=== PATIENT | female | born 1995 | race Caucasian/White ===

== ENCOUNTER 2025-03-24 18:50 | Emergency (ER) | payer OTHER ==
[2025-03-24 20:01] LABS: Specific Gravity < 1.005 (1.005-1.030)
[2025-03-24 20:32] LABS: Barbiturates NEGATIVE (NEGATIVE); Benzodiazepines NEGATIVE (NEGATIVE); Cocaine NEGATIVE (NEGATIVE); METHAMPHETAM NEGATIVE (NEGATIVE); Methadone NEGATIVE (NEGATIVE); Opiates NEGATIVE (NEGATIVE); Phencyclidine NEGATIVE (NEGATIVE); THC Cannibis NEGATIVE (NEGATIVE)
[2025-03-24] MEDS ORDERED: NA CHLORIDE 0.9% 1,000 ML ONE (21:25)
[2025-03-24 21:26] LABS: Absolute Eosinophils 0.1 K/uL (0-0.5); Absolute Lymphocytes (CBC) 2.2 K/uL (0.7-4.9); Absolute Monocytes 0.4 K/uL (0.1-1.3); Absolute Neutrophil 3.7 K/uL (1.8-8.0); Basophils % 0.5 % (0-1.3); Eosinophils % 0.9 % (0-4.4); Hematocrit 32.8 % (36.0-45.0); Hemoglobin 10.9 g/dL (12.0-15.0); Lymphocytes % 33.9 % (15.3-44.8); MCH 25.4 pg (27.0-35.0); MCHC 33.4 g/dL (32.0-36.0); MPV 8.5 fL (7.6-11.3); Neutrophils % 57.7 % (41.7-73.7); Platelets 275 thou/uL (152-406); RBC Red Blood Cell Count 4.31 M/uL (3.86-4.86)
[2025-03-24 21:35] LABS: PT Prothrombin Time 10.9 SECONDS (10-13.0); PTT, Activated Partial Thromb 34.4 SECONDS (27.2-37.4); Protime INR 0.95
[2025-03-24 22:13] LABS: ALT/SGPT 117 U/L (13-56); AST/SGOT 63 U/L (15-37); Albumin 3.6 g/dL (3.4-5.0); Albumin/Globulin Ratio 0.8 (1.1-1.8); Alkaline Phosphatase 78 U/L (45-117); Anion Gap 9.9 mEq/L (5.0-15.0); BUN Blood Urea Nitrogen 10 mg/dL (7-18); Bicarbonate 25 mEq/L (21-32); Bilirubin Total 0.2 mg/dL (0.2-1.0); Globulin 4.4 g/dL (2.3-3.5); Glomerular Filtration Rate 125 ml/min (=/>90); Glucose Level 91 mg/dL (74-106); Potassium 3.9 mEq/L (3.5-5.1); Sodium Level 140 mEq/L (136-145)
[2025-03-24 22:20] LABS: Bilirubin Direct < 0.2 mg/dL (0-0.2)
--- NOTE | 2025-03-24 22:36 | ER ---
Nurse's Notes [facility] Name: Dio Abebe Age: 30 yrs Sex: Female : 1995 Arrival Date: 03/24/2025 Time: 18:50 Bed 22 Private MD: Diagnosis: Suicidal ideations Presentation: 03/24 18:58 Chief complaint: Patient states: she took 15 Seroquel 50 mg tabs and approx 23 iw hydroxyzine 50 mg tabs , took then at 1800 today. She states she wanted to go to sleep and she was pretty upset. Coronavirus screen: At this time, the client does not indicate any symptoms associated with coronavirus-19. Ebola Screen: No symptoms or risks identified at this time. Initial Sepsis Screen: Does the patient meet any 2 criteria? HR > 90 bpm. Does the patient have a suspected source of infection? No. Patient's initial sepsis screen is negative. Risk Assessment: Do you want to hurt yourself or someone else? Patient reports desire/thoughts of hurting themselves or someone else. Provider notified. Onset of symptoms was March 24, 2025. 18:58 Acuity: SAMANTHA 2 iw 18:58 Method Of Arrival: Ambulatory iw Historical: - Allergies: 20:18 No Known Allergies; jj7 - PMHx: 03/25 13:27 Anxiety; Depressive disorder; Bipolar disorder; jl7 - PSHx: 13:27 None; jl7 - Immunization history:: Adult Immunizations unknown. - Infectious Disease History:: Denies. - Social history:: Smoking status: Reported history of juuling and/or vaping. Patient uses street drugs, heroin, IV drugs, heroin, Patient/guardian denies using alcohol. Screenin/08 19:35 [facility] ED Fall Risk Assessment (Adult) History of falling in the last 3 months, jj7 including since admission No falls in past 3 months (0 pts) Confusion or Disorientation No (0 pts) Intoxicated or Sedated No (0 pts) Impaired Gait No (0 pts) Mobility Assist Device Used No (0 pt) Altered Elimination No (0 pt) Score/Fall Risk Level 0 - 2 = Low Risk Oriented to surroundings, Maintained a safe environment, Educated pt \\T\\ family on fall prevention, incl call for assistance when getting out of bed, Assessed \\T\\ reinforced patient's understanding of fall precautions, Hourly rounding (assess needs \\T\\ fall precautionary measures) done. Abuse screen: Denies threats or abuse. Nutritional screening: No deficits noted. Tuberculosis screening: No symptoms or risk factors identified. Assessment: 19:30 Reassessment: ASUMMED CARE OF PT. Patient denies pain at this time. General: [facility] in [facility] no apparent distress. comfortable, Behavior is calm, cooperative, appropriate for age, drowsy. Pain: Denies pain. Neuro: Level of Consciousness is alert, obeys commands, lethargic, Oriented to person, place, time, situation, Appropriate for age Moves all extremities. Full function Gait is steady, Speech is normal. Cardiovascular: No deficits noted. Respiratory: No deficits noted. GI: No deficits noted. : No deficits noted. EENT: No deficits noted. Derm: No deficits noted. Musculoskeletal: No deficits noted. 19:50 Reassessment: POISON CONTROL CALLED. STATES SUPPORTIVE AND SYMPTOMATIC CARE. 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 CAN CAUSE SZ. HAS ANTICHOLINERGIC SYMPTOMS LIKE DRY MOUTH. GET EKG NOW. IF PROLONGED ST GREATER THAN 120MM GIVE BICARD AND DO ANOTHER EKG. QTC GREATER THAN 500MM WATCH ELECTROLYTES. K+ 4-4.5. MAG GREATER THAN 2 AND CALCIUM GREATER THAN 9. 21:51 Reassessment: PT RESTING COMFORTABLY IN BED. NO DISTRESS NOTED. VS STABLE. [facility] AT [facility]. 23:41 Reassessment: No changes from previously documented assessment. [facility] 03/25 01:00 Reassessment: SHALES WITH [facility] AT BEDSIDE. [facility] 02:00 Reassessment: PT SLEEPING NO DISTRESS NOTED. j 03:00 Reassessment: No changes from previously documented assessment. j7 04:00 Reassessment: No changes from previously documented assessment. j7 05:00 Reassessment: No changes from previously documented assessment. j 07:00 General: Appears in no apparent distress. comfortable, well groomed, well developed, kc6 Behavior is calm, cooperative, appropriate for age. Pain: Denies pain. Neuro: Level of Consciousness is awake, alert, obeys commands, Oriented to person, place, time, situation, Appropriate for age. Cardiovascular: Capillary refill < 3 seconds. Respiratory: Airway is patent Trachea midline Respiratory effort is even, unlabored, Respiratory pattern is regular, symmetrical. GI: No signs and/or symptoms were reported involving the gastrointestinal system. : No signs and/or symptoms were reported regarding the genitourinary system. EENT: No signs and/or symptoms were reported regarding the EENT system. Derm: No signs and/or symptoms reported regarding the dermatologic system. Skin is intact, is healthy with good turgor, Skin is pink, warm \\T\\ dry. Musculoskeletal: No signs and/or symptoms reported regarding the musculoskeletal system. Circulation, motion, and sensation intact. Range of motion: intact in all extremities. 07:04 Reassessment: PT STATES SHE TOOK THE MEDS BECAUSE SHE DIDN'T LIKE HOW SHE WAS FEELING. dottie JUST GOT OUT OF REHAB March AND RELAPSED AND WAS UPSET ABOUT RELAPSING. THAT'S WHY SHE TOOK THE MEDS. 07:13 Reassessment: at bedside visiting with patient, security called to obtain kc6 patient belongings. 08:41 Reassessment: Patient appears in no apparent distress at this time. No changes from kc6 previously documented assessment. Patient and/or family updated on plan of care and expected duration. Pain level reassessed. Patient is alert, oriented x 3, equal unlabored respirations, skin warm/dry/pink. 09:42 Reassessment: Patient appears in no apparent distress at this time. No changes from kc6 previously documented assessment. Patient and/or family updated on plan of care and expected duration. Pain level reassessed. Patient is alert, oriented x 3, equal unlabored respirations, skin warm/dry/pink. 10:49 Reassessment: Patient appears in no apparent distress at this time. No changes from kc6 previously documented assessment. Patient and/or family updated on plan of care and expected duration. Pain level reassessed. Patient is alert, oriented x 3, equal unlabored respirations, skin warm/dry/pink. Patient denies pain at this time. 11:49 Reassessment: Patient appears in no apparent distress at this time. No changes from kc6 previously documented assessment. Patient and/or family updated on plan of care and expected duration. Pain level reassessed. Patient is alert, oriented x 3, equal unlabored respirations, skin warm/dry/pink. 12:49 Reassessment: Patient appears in no apparent distress at this time. No changes from kc6 previously documented assessment. Patient and/or family updated on plan of care and expected duration. Pain level reassessed. Patient is alert, oriented x 3, equal unlabored respirations, skin warm/dry/pink. 13:31 Reassessment: Nurse to nurse with [facility]. 7 13:49 Reassessment: Patient appears in no apparent distress at this time. No changes from kc6 previously documented assessment. Patient and/or family updated on plan of care and expected duration. Pain level reassessed. Patient is alert, oriented x 3, equal unlabored respirations, skin warm/dry/pink. Overdose: 03/24 19:30 [place] Suicide Severity Screening: "In the past month, have you wished you were jj7 or wished you could go to sleep and not wake up?" Patient responds "no." "In the past month, have you actually had any thoughts of killing yourself?" Patient responds "no." "In your lifetime, have you ever done anything, started to do anything, or prepared to do anything to end your life?" Patient responds "no.". Patient took SEROQUEL 50MG-TOOK 15 TABLETS. HYDROXYZINE 50MG- TOOK 23 TABLETS. 19:30 [place] Suicide Severity Screening: "In the past month, have you wished you were jj7 or wished you could go to sleep and not wake up?" Patient responds "no." "In the past month, have you actually had any thoughts of killing yourself?" Patient responds "no." "In your lifetime, have you ever done anything, started to do anything, or prepared to do anything to end your life?" Patient responds "no.". Overdose occurred 1-2 hours ago. Vital Signs: 18:58 BP 128 / 89; Pulse 105; Resp 16; Temp 98.9; Pulse Ox 100% on R/A; iw 21:48 BP 115 / 66; Pulse 97; Resp 15; Pulse Ox 99% ; Pain 0/10; jj7 23:48 BP 110 / 68; Pulse 87; Resp 16; Pulse Ox 100% ; jj7 03/25 03:00 BP 116 / 61; Pulse 82; Resp 16; Pulse Ox 99% ; jj7 21:48 Pain Scale: Adult jj7 Leti Coma Score: 03/24 19:35 Eye Response: spontaneous(4). Motor Response: obeys commands(6). Verbal Response: jj7 oriented(5). Total: 15. ED Course: 18:53 Patient arrived in ED. al6 18:56 Gricel Wooten [facility]-C [facility]. sb4 18:56 Yesenia Adair MD is Attending Physician. sb4 19:00 Triage completed. iw 19:15 Reinier Dunn, RN is Primary Nurse. jj7 19:35 Missed attempt(s): 20 gauge in right upper arm. PT IS AN IV HEROINE USER VERY HARD jj7 STICK. CHARGE NURSE INFORMED. PT WILL NEED US GUIDED IV. Bleeding controlled, band aid applied, catheter tip intact. 19:35 Patient has correct armband on for positive identification. Bed in low position. Side j7 rails up X 1. Adult w/ patient. Provided Education on: MENTAL HEALTH PROTOCOL. Client placed on continuous cardiac and pulse oximetry monitoring. NIBP monitoring applied. lunchroom monitor on. Warm blanket given. 20:02 Urine Drug Screen Sent. j7 21:20 Inserted saline lock: 22 gauge in left forearm, using aseptic technique. ,using aseptic bm8 technique. ultrasound guided Blood collected. Flushed with 10 mL NS. 21:51 Lights dimmed. jj7 22:46 Called [facility]\\ [id number]. 03/25 02:22 Vik Wood MD is Attending Physician. cp 07:00 Patient maintains SpO2 saturation greater than 95% on room air. [facility] 07:00 Patient has correct armband on for positive identification. Bed in low position. Side [facility] rails up X2. Adult w/ patient. Valuables inventory done. Locked in safe. See valuables checklist. Sitter at bedside. Door closed. Noise minimized. Visitors limited. Lights dimmed. Moved to private room. Warm blanket given. Pillow given. Diet tray ordered. Verbal reassurance given. Patient is placed in psych hold. 07:00 Arm band placed on. 6 07:00 Report received from NORBERT CERRATO. kc6 07:13 Report given to THEO TOUSSAINT. jj7 13:30 administrative approval given by Anitra Gandhi / patient has been accepted to [facility]/ Dr. Rios has accepted the patient in transfer. 13:31 connected Corina Rn from [facility] with the Rn taking care of the patient for eb nurse to nurse. 13:32 Primary Nurse role handed off by Reinier Dunn, RN jl7 Administered Medications: 03/24 21:45 Drug: NS 0.9% IV 1000 ml IV at 1 bolus Per protocol; to be given as a bolus over 60 jj7 minutes Route: IV; Rate: 1 bolus; Site: left forearm; 22:50 Follow up: IV Status: Completed infusion jj7 Medication: 19:35 VIS not applicable for this client. jj7 Outcome: 22:36 ER care complete, transfer ordered by MD. major 03/25 16:20 Patient left the ED. eb Signatures: So Boyd, RN Vik Virk PA PA cp Leal, Jahala RN RN jl7 Sravani Gloria Kaitlyn RN RN kc6 Reinier Dunn, RN RN jjGricel Hernandez, PA-C PA-Steven [email or web address] Brady Butt RN RN bm8 Moni Camacho Alissa al6 Corrections: (The following items were deleted from the chart) 03/24 23:41 19:35 Reassessment: ASUMMED CARE OF PT. Patient denies pain at this time. j7 jj7 23:41 19:35 General: Appears in no apparent distress. comfortable, Behavior is calm, jj7 cooperative, appropriate for age, drowsy, jj7 : 19:35 Pain: Denies pain. jj7 jj7 :41 19:35 Neuro: Level of Consciousness is alert, obeys commands, lethargic, Oriented to jj7 person, place, time, situation, Appropriate for age Moves all extremities. Full function Gait is steady, Speech is normal, jj7 23:41 19:35 Cardiovascular: No deficits noted. jj7 jj7 : 19:35 Respiratory: No deficits noted. jj7 jj7 :41 19:35 GI: No deficits noted. jj7 jj7 :41 19:35 : No deficits noted. jj7 jj7 :41 19:35 EENT: No deficits noted. jj7 jj7 23:41 19:35 Derm: No deficits noted. jj7 jj7 23:41 19:35 Musculoskeletal: No deficits noted. jj7 jj7 03/25 07:07 03/24 19:30 Musculoskeletal: No deficits noted. jj7 jj7
--- NOTE | 2025-03-24 22:36 | EDPHYS ---
Physician Documentation [facility] Name: Dio Abebe Age: 30 yrs Sex: Female : 1995 Arrival Date: 03/24/2025 Time: 18:50 Bed 22 Private MD: ED Physician Vik Wood HPI: 03/24 19:40 This 30 yrs old Female presents to ER via Ambulatory with complaints of Overdose. sb4 19:40 The patient presents to the emergency department after a known overdose, that was sb4 intentional. Context: Method: the patient has a confirmed or suspected ingestion, quetiapine and hydroxyzine , Time: at 18:00, Extent: the OD/poisoning occurred at at home. 19:41 Patient states that she took a copious amount of her hydroxyzine and quetiapine because sb4 she did not like the way she felt. States that she just recently got out of rehab for heroin abuse. States that she is no longer suicidal. Historical: - Allergies: 20:18 No Known Allergies; jj7 - PMHx: 03/25 13:27 Anxiety; Depressive disorder; Bipolar disorder; jl7 - PSHx: 13:27 None; jl7 - Immunization history:: Adult Immunizations unknown. - Infectious Disease History:: Denies. - Social history:: Smoking status: Reported history of juuling and/or vaping. Patient uses street drugs, heroin, IV drugs, heroin, Patient/guardian denies using alcohol. ROS: 03/24 19:41 Constitutional: Negative for fever, chills, and weight loss, sb4 Exam: 03/25 01:02 Constitutional: This is a well developed, well nourished patient who is awake, alert, sb4 and in no acute distress. Head/Face: Normocephalic, atraumatic. Eyes: Extra-ocular motions intact. Periorbital areas with no swelling, redness, or edema. ENT: Mucous membranes moist. Cardiovascular: Regular rate and rhythm with a normal S1 and S2. Respiratory: No increased work of breathing, no retractions or nasal flaring. Abdomen/GI: Soft, non-tender, no distension. Skin: Warm, dry with normal turgor. Normal color with no rashes, no lesions, and no evidence of cellulitis. Vital Signs: 03/24 18:58 BP 128 / 89; Pulse 105; Resp 16; Temp 98.9; Pulse Ox 100% on R/A; iw 21:48 BP 115 / 66; Pulse 97; Resp 15; Pulse Ox 99% ; Pain 0/10; jj7 23:48 BP 110 / 68; Pulse 87; Resp 16; Pulse Ox 100% ; jj7 03/25 03:00 BP 116 / 61; Pulse 82; Resp 16; Pulse Ox 99% ; jj7 21:48 Pain Scale: Adult jj7 Hawkins Coma Score: 03/24 19:35 Eye Response: spontaneous(4). Motor Response: obeys commands(6). Verbal Response: jj7 oriented(5). Total: 15. MDM: 18:56 Medical Screening Exam initiated sb4 03/25 01:02 Data reviewed: vital signs, nurses notes, lab test result(s), EKG, radiologic studies. sb4 01:30 Differential diagnosis: Ingestion/exposure to hydroxyzine/seroquel over medication, sb4 suicidal ideation. Management of patient was discussed with the following: Behavioral Health Provider: recommends inpatient therapy. Counseling: I had a detailed discussion with the patient and/or guardian regarding the historical points, exam findings, and any diagnostic results supporting the discharge/admit diagnosis, lab results, radiology results, the need to transfer to another facility, [facility] does not immediately have the required specialist. 03/24 18:57 Order name: Acetaminophen; Complete Time: 22:25 4 03/24 18:57 Order name: Basic Metabolic Panel; Complete Time: 22:25 [facility] 03/24 18:57 Order name: CBC with Diff; Complete Time: 21:29 4 03/24 18:57 Order name: ETOH Level; Complete Time: 22:04 4 03/24 18:57 Order name: Hepatic Function; Complete Time: 22:25 4 03/24 18:57 Order name: PT-INR; Complete Time: 21:41 4 03/24 18:57 Order name: Test, Urine; Complete Time: 20:01 4 03/24 18:57 Order name: Ptt, Activated; Complete Time: 21:41 [facility] 03/24 18:57 Order name: Salicylate; Complete Time: 22:15 4 03/24 18:57 Order name: Urine Drug Screen; Complete Time: 20:44 sb4 03/24 18:57 Order name: EKG - Nurse/Tech; Complete Time: 20:02 sb4 03/24 18:57 Order name: IV Saline Lock; Complete Time: 21:21 sb4 03/24 18:57 Order name: Labs collected and sent; Complete Time: 21:21 sb4 03/24 18:57 Order name: Suicide Precautions; Complete Time: 20:02 sb4 03/24 18:57 Order name: Suicide Screening ([place]); Complete Time: 19:37 sb4 03/24 18:57 Order name: Misc. Order: call poison control; Complete Time: 20:07 sb4 EC/08 20:01 Rate is 95 beats/min. Rhythm is regular, Normal Sinus Rhythm. ID interval is normal at sb4 132 msec. QRS interval is normal at 88 msec. QT interval is normal at 360 msec. No Q waves. T waves are Normal. No ST changes noted. Clinical impression: Normal ECG. Interpreted by me. Reviewed by me. Administered Medications: 21:45 Drug: NS 0.9% IV 1000 ml IV at 1 bolus Per protocol; to be given as a bolus over 60 jj7 minutes Route: IV; Rate: 1 bolus; Site: left forearm; 22:50 Follow up: IV Status: Completed infusion jj7 Disposition Summary: 03/24/25 22:36 Transfer Ordered Notes: Transfer Location: Psych Facility sb4 Reason: Higher level of care sb4 Condition: Fair sb4 Problem: new sb4 Symptoms: are unchanged sb4 Accepting Physician: psych(03/25/25 16:20) eb Diagnosis - Suicidal ideations sb4 Forms: - Medication Reconciliation Form sb4 - SBAR form sb4 Signatures: Dispatcher [employer] EDMS Patricio Arevalo RN RN jl7 Sravani Gloria Kaitlyn RN RN kc6 Reinier Dunn RN RN jj7 Gricel Wooten PA-C PA-C sb4 Corrections: (The following items were deleted from the chart) 18:58 18:58 ACETAMINOPHEN+C.LAB.BRZ ordered. EDMS EDMS 18:58 18:58 BASIC METABOLIC PANEL+C.LAB.BRZ ordered. EDMS EDMS 18:58 18:58 CBC+H.LAB.BRZ ordered. EDMS EDMS 18:58 18:58 ETHANOL+C.LAB.BRZ ordered. EDMS EDMS 18:58 18:58 HEPATIC FUNCTION+C.LAB.BRZ ordered. EDMS EDMS 18:58 18:58 PROTIME (+INR)+COAG.LAB.BRZ ordered. EDMS EDMS 18:58 18:58 Test, Urine+UC.LAB.BRZ ordered. EDMS EDMS 18:58 18:58 PTT, ACTIVATED+COAG.LAB.BRZ ordered. EDMS EDMS 18:58 18:58 SALICYLATE+C.LAB.BRZ ordered. EDMS EDMS 18:58 18:58 URINE DRUG SCREEN+UC.LAB.BRZ ordered. EDMS EDMS 03/25 16:20 03/24 22:36 psych sb4 eb
--- NOTE | 2025-03-28 12:09 | EKG ---
Test Date: 2025-03-24 Test Time: 20:00:23 Hospice Care Transitions Coordinator: SAQIB MEASUREMENT RESULTS: Intervals: Rate: 95 IL: 132 QRSD: 88 QT: 360 QTc: 452 [place]: P: 47 IL: 132 QRS: 54 T: 26 INTERPRETIVE STATEMENTS: Normal sinus rhythm Cannot rule out Anterior infarct, age undetermined Abnormal ECG No previous ECG available for comparison Electronically Signed On 03-28-25 12:07:13 CDT by Tad Tinajero
== END 2025-03-25 16:20 ==
LOC: ER 18:50
DX: R45.851 Suicidal ideations (principal); F31.9 Bipolar disorder, unspecified
CPT/HCPCS: 93005; 85025; 80048; 36415; 81025; 85610; 80076; 85730; 80307; 96360; 99285; 80143; 80179; 82077; J7030